=== PATIENT | female | born 2000 | race Caucasian/White ===

== ENCOUNTER 2021-07-25 01:09 | Emergency (ER) | payer OTHER, BC ==
[~2021-07-25] VITALS: Ht 175.2 cm; Wt 99.3 kg
[2021-07-25] MEDS ORDERED: fentaNYL INJ 100 MCG/2 ML AMP ONE ×2 (01:17→01:29)
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
[2021-07-25 01:39] LABS: HEMATOCRIT 42 % (35-52); HEMOGLOBIN 13.6 g/dL (11.5-16.0); MEAN CORPUSCULAR HEMOGLOBIN 30 pg (25-34); MEAN CORPUSCULAR HGB CONC 33 g/dL (32-36); MEAN CORPUSCULAR VOLUME 91 fL (80-99); MEAN PLATELET VOLUME 11.2 fL (9.0-12.2); PLATELET COUNT 310 10^3/uL (130-400)
[2021-07-25] MEDS ORDERED: NS IV 1000 ML 1,000 ML IV SCH (01:45)
[2021-07-25] MEDS ORDERED: fentaNYL INJ 100 MCG/2 ML AMP IVP ONE ×3 (01:45→03:15)
[2021-07-25 01:51] LABS: CALCIUM 9.5 MG/DL (8.5-10.1)
[2021-07-25 01:54] LABS: BILIRUBIN,TOTAL 0.5 MG/DL (0.1-1.0)
[2021-07-25 01:56] LABS: CREATININE SERUM 0.72 MG/DL (0.60-1.30)
[2021-07-25 01:57] LABS: BILIRUBIN,DIRECT 0.2 MG/DL (0.0-0.3); BILIRUBIN,INDIRECT 0.3 MG/DL
[2021-07-25] MEDS ORDERED: HYDROmorphone 2 MG/ML VIAL (DILAUDID) IV ONE ×4 (02:00→09:15)
[2021-07-25] MEDS ORDERED: CATHETER FLUSH 10 ML SYR IV PRN (02:30)
[2021-07-25] MEDS ORDERED: NS 100 ML (IVPB) BAG IV ONE (02:30)
[2021-07-25] MEDS ORDERED: HOLD METFORMIN - RECEIVED CONTRAST 20 ML VIAL IV SCH (02:30)
[2021-07-25] MEDS ORDERED: IOHEXOL 350 MG/ML 100 ML (OMNIPAQUE 350) VIAL IV ONE (02:30)
[2021-07-25] MEDS ORDERED: LACTATED RINGERS 1,000 ML IV SCH (03:00)
[2021-07-25] MEDS ORDERED: cefTRIAXone 1,000 MG in WATER (STERILE) FOR INJECTION 10 ML IV ONE (03:15)
[2021-07-25] MEDS ORDERED: KETAMINE HCL 100 MG/ML 5 ML VIAL IM ONE (04:00)
[2021-07-25] MEDS ORDERED: KETAMINE SYRINGE 50 MG/5 ML SYRINGE ONE ×2 (04:02→04:22)
[2021-07-25] MEDS ORDERED: KETAMINE HCL 100 MG/ML 5 ML VIAL ONE (04:24)
[2021-07-25 04:49] LABS: BILIRUBIN,URINE NEGATIVE (NEGATIVE); CLARITY,URINE CLEAR; COLOR,URINE YELLOW; GLUCOSE, URINE (UA) NEGATIVE (NEGATIVE); KETONES,URINE NEGATIVE (NEGATIVE); LEUKOCYTE ESTERASE ,URINE NEGATIVE (NEGATIVE); NITRITE,URINE NEGATIVE (NEGATIVE); PH,URINE 5.5 (5-9); PROTEIN,URINE NEGATIVE (NEGATIVE)
[2021-07-25 04:57] LABS: BACTERIA,URINE LARGE /HPF; WBC,URINE 0-2 /HPF
[2021-07-25 04:58] LABS: SQUAMOUS EPITHELIAL CELL,UR 25-50 /HPF
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
--- NOTE | 2021-07-25 07:31 | Diagnostic Imaging Report ---
INDICATION: Postreduction COMPARISON: Imaging from same date TECHNIQUE: 2 radiographs of the left forearm dated 07/25/2021 at 0432 hours. FINDINGS: Acute fracturing of the mid to distal radial and ulnar shafts is again identified. Improved alignment of these fractures is noted, though persistent 1 shaft posterior displacement of the radial fracture and half shaft width posterior displacement of the ulnar fracture does remain. No new fracture or dislocation. Splinting material is in place. IMPRESSION: Interval reduction of previously noted radial and ulnar shaft fractures with alignment appearing slightly improved with persistent posterior displacement remaining. Dictated by: Dictated on workstation # [id number]
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
[2021-07-25] MEDS ORDERED: HYDROmorphone 2 MG/ML VIAL (DILAUDID) ONE (09:02)
[2021-07-25 09:17] VITALS: BP 174/74
== END 2021-07-25 09:17 | disposition short-term general hospital (02) ==
LOC: EDUNIT# 01:09 → ER 01:11
DX: S02.32XA Fracture of orbital floor, left side, initial encounter for closed fracture (principal); S52.502A Unspecified fracture of the lower end of left radius, initial encounter for closed fracture; S52.202A Unspecified fracture of shaft of left ulna, initial encounter for closed fracture; S32.401A Unspecified fracture of right acetabulum, initial encounter for closed fracture; S06.0X0A Concussion without loss of consciousness, initial encounter; S00.03XA Contusion of scalp, initial encounter; S73.004A Unspecified dislocation of right hip, initial encounter; R40.2410 Glasgow coma scale score 13-15, unspecified time; Z20.822 Contact with and (suspected) exposure to COVID-19; V89.2XXA Person injured in unspecified motor-vehicle accident, traffic, initial encounter
CPT/HCPCS: 70450; 71045; 71260; 72125; 73090; 73502; 74177; 80048; 80076; 81000; 84703; 85027; 86850; 86900; 86901; 87636; 93005; 93041; 99291; G0480; 36415; 80320; 96361; 96372; 96374; 96375; 96376